=== PATIENT | female | born 1995 | race Caucasian/White ===

== ENCOUNTER 2018-01-20 13:36 | Observation (INO) ==
--- NOTE | 2018-01-20 14:48 | OB/GYN Progress Note ---
Date of Encounter: 01/20/18 Time of Encounter: 14:45 - Assessment and Plan (1) 40 weeks gestation of Current Visit: Yes Status: Acute (2) Vaginal discharge during in third trimester Current Visit: Yes Status: Acute Speculum exam shows thick chunky mucousy discharge. Fern negative. Patient offered induction of labor today, patient states she wishes to wait until . Discharged home with labor and when to return to triage precautions. Patient verbalizes understanding Subjective - Subjective Interval history: 40+6 weeks gestation presents to triage with complaints of increase in mucousy discharge. Patient said she started having increased discharge last night and has continued to the morning. Reports good movement, denies vaginal bleeding or leaking of fluid and fluid. Patient scheduled for induction of labor on Antepartum ROS: movement normal, no loss of fluid, no vaginal bleeding, no contractions Objective - Exam FHR: auscultation normal FHR comments: Baseline 145 reactive tracing Abdomen: Present: soft, gravid Cervical dilation: Fingertip/firm/thick
[2018-01-20 15:59] LABS: Amphetamine Screen,Urine Negative ng/mL (Cutoff=1000); Barbiturate Screen,Urine Negative ng/mL (Cutoff=200); Benzodiazepines Screen,Urine Negative ng/mL (Cutoff=200); Cannabinoid Screen,Urine Negative ng/mL (Cutoff = 50); Cocaine Screen,Urine Negative ng/mL (Cutoff= 300); Opiate Screen,Urine Negative ng/mL (Cutoff=300); Phencyclidine Screen,Urine Negative ng/mL (Cutoff=25)
== END 2018-01-20 14:45 | disposition home or self-care (01) ==
LOC: 1NENULAB → INTOOBSV 13:36 → OBSVTOIN 13:36
PROVIDERS: ADMIT Obstetrics & Gynecology; ATTEND Obstetrics & Gynecology

== ENCOUNTER 2018-01-21 12:56 | Inpatient (IN) ==
[2018-01-21] MEDS ORDERED: EPHEDrine 50 MG/ML VIAL IVP PRN (13:16)
[2018-01-21] MEDS ORDERED: Epidural Premix (fent/bupiv) 110 ML EP SCH (13:30)
[2018-01-21] MEDS ORDERED: Metoclopramide 10 MG/2 ML VIAL IVP PRN (14:18)
[2018-01-21] MEDS ORDERED: *HR* Nalbuphine 10 MG/ML AMPUL IVP PRN (14:18)
[2018-01-21] MEDS ORDERED: Ondansetron 4 MG/2 ML VIAL IVP PRN (14:18)
[2018-01-21] MEDS ORDERED: Naloxone 0.4 MG/ML INJ IVP PRN (14:18)
[2018-01-21] MEDS ORDERED: Famotidine 20 MG/2 ML VIAL IVP PRN (14:18)
[2018-01-21] MEDS ORDERED: miSOPROStol 25 MCG TABLET PO PRN (14:18)
--- NOTE | 2018-01-21 14:23 | OB/GYN History & Physical ---
Date of Encounter: 01/21/18 Time of Encounter: 14:22 Assessment and Plan (1) Post-dates Current visit: Yes Status: Acute Admit to labor and delivery for IOL for post-dates GBS positive; PCN prophylaxis Cytotec and perez bulb Consider AROM and/or pitocin Anticipate vaginal delivery POC per consult with Dr Bello Qualifiers: Post-term type: 40-42 weeks gestation Qualified Code(s): O48.0 - Post-term (2) 41 weeks gestation of Current visit: Yes Status: Acute History of Present Illness Chief complaint: Contractions, vaginal discharge, and bloody show HPI: Ms. Mckeon is a 22 year old at 41 weeks and 0 days that presents to labor and delivery triage with c/o increased vaginal discharge, irregular contractions , and bloody vaginal discharge yesterday. She states positive movement. She denies headache, visual disturbances, and epigastric pain. After discussing risks vs benefits of discharge vs postdate IOL, patient elects to induce today. Past Med Surg Social Fam HX - Past Medical History Medical history: no medical history Psychiatric history: no psych history - Past Surgical History Surgical History: no surgical history - Social History Smoking Status: Never smoker Alcohol use: none Drug use: none - Family History Mother Hx Family Cardiac Disorders: Yes (Low blood pressure) Obstetrical History - Pregnancies : 1 Para: 0 Term: 0 : 0 Ab's: 0 Livin Medications and Allergies Vit Calc,Iron,Folic [ Vitamins] 1 each PO DAILY 01/21/18 [ History] 3 Allergy/AdvReac Type Severity Reaction Status Date / Time Amoxicillin AdvReac Rash Verified 01/21/18 13:50 Review of System OB All systems PM: reviewed and no additional remarkable complaints except as stated Exam - Constitutional Constitutional: well developed, well nourished, no acute distress, average body habitus - HEENT HEENT: Normocephaly, Mucus Membranes Moist - Neck Neck exam: full ROM - Lungs Respiratory exam: CTAB - Cardiovascular Cardiovascular exam: RRR, +S1 - Abdomen Abdomen: Present: bowel sounds normal, gravid, non tender - Extremities Extremities exam: normal capillary refill, normal inspection, radial pulses palpable and symmetrical Deep Tendon Reflex Grade: 2+ Normal - Vagina Vagina: Present: normal moisture - Cervix Dilation: 1 Effacement: 70 Station: -2 - Uterus Uterus exam: Present: normal size, normal contour Results All other labs normal. - VTE Reasons for not Prescribing Prophylaxis: Treatment not Indicated - Low risk for VTE
[2018-01-21] MEDS ORDERED: Lidocaine -MPF 1% 2 ML VIAL ONE (14:25)
--- NOTE | 2018-01-21 14:38 | Anesthesia Evaluation PreOp ---
Date of Encounter: 01/21/18 Time of Encounter: 14:33 - Past History Planned Operation: vaginal del, G1 post dates, ind Cardiac History: Denies any Significant Hx Pulmonary History: Denies Any Significant HX SALESPERSON PARTS History: Denies Any Significant HX Other Medical History: Denies Any Significant HX Anesthesia History: No Prior Anesthetic Complications, Past Anesthesia Alcohol Use: none Drug use: none Medications and Allergies Vit Calc,Iron,Folic [ Vitamins] 1 each PO DAILY 01/21/18 [ History] 3 Allergy/AdvReac Type Severity Reaction Status Date / Time Amoxicillin AdvReac Rash Verified 01/21/18 13:50 Anesthesia Exam - HEENT Pupil (Motor): Pupils equal Mallampati: II Teeth: Normal Oral Opening: Greater than 3 - SALESPERSON PARTS LOC: Oriented SALESPERSON PARTS Motor: Normal RUE, Normal LUE, Normal RLE, Normal LLE, Normal Face SALESPERSON PARTS Sensory: Normal: RUE, LUE, RLE, LLE, Face - Cardiac Rhythm: Regular Murmur: None - Pulmonary Breath Sounds: bilateral Clear Respiratory Effort: Symmetrical Anesthesia Assess/Plan ASA Score: 2 Modified Allen Scale for Level of Consciousness: Cooperative, oriented, and tranquil Anesthetic Plan: General, Regional Monitoring Plan: Standard Monitors Recovery Plan: PACU
[2018-01-21 15:13] LABS: Basophils % 0.2 %; Eosinophils # 0.1 K/mcL (0.0-0.6); Eosinophils % 0.7 %; Hematocrit 40.8 % (35.3-44.9); Immature Granulocytes % 0.6 % (0-4); Lymphocytes # 1.6 K/mcL (0.6-4.6); Mean Corpuscular HGB Conc 34.3 g/dL (31.6-35.5); Mean Corpuscular Hemoglobin 30.8 pg (28.0-33.3); Mean Corpuscular Volume 89.9 fL (83.0-100.0); Mean Platelet Volume 12.3 fL (9.4-12.4); Monocytes # 0.6 K/mcL (0.0-1.3); Monocytes % 6.9 %; Platelet Count 175 K/mcL (140-400); Red Blood Count 4.54 M/mcL (3.82-4.97); Red Cell Distribution Width 12.8 % (11.5-14.5); Segmented Neutrophils % 72.6 %
[2018-01-21 15:31] LABS: Amphetamine Screen,Urine Negative ng/mL (Cutoff=1000); Barbiturate Screen,Urine Negative ng/mL (Cutoff=200); Benzodiazepines Screen,Urine Negative ng/mL (Cutoff=200); Cannabinoid Screen,Urine Negative ng/mL (Cutoff = 50); Cocaine Screen,Urine Negative ng/mL (Cutoff= 300); Opiate Screen,Urine Negative ng/mL (Cutoff=300); Phencyclidine Screen,Urine Negative ng/mL (Cutoff=25)
[2018-01-21] MEDS: Ringers Solution, Lactated 1,000 ML IVC SCH (16:17)
--- NOTE | 2018-01-21 18:31 | OB Labor Progress Note ---
Date of Encounter: 01/21/18 Time of Encounter: 18:29 Labor Progress Note - Subjective Subjective: Sitting up in bed; states she is comfortable - Vital Signs Vital Signs: VSS - Cervix Cervix: 1-2/80/-2 - Heart Tones Heart Tones: 145 - [place]: irregular contractions - Interventions Interventions: Intracervical perez placed without difficulty with 40 ml of sterile water. Fetus and patient tolerated well. - Plan Plan: Continue routine labor management GBS positive - had allergic reaction to vancomycin. No other appropriate ABX available due to sensitivity. Discussed risks and benefits to both mother and fetus with patient Patient may have nubain and/or epidural. Consider second dose of cytotec Consider AROM vs/and pitocin Anticipate vaginal delivery POC per consult with Dr Bello
[2018-01-21] MEDS ORDERED: cefTRIAXone 2,000 MG in Water for inj. (sterile) 20 ML 20 ML IVP STA (18:44)
[2018-01-21] MEDS ORDERED: Oxytocin 20 units/ LR 1000 mL 20 UNIT/1,000 ML BAG IVC SCH (23:45)
[2018-01-22] MEDS: Ringers Solution, Lactated 1,000 ML IVC SCH ×2 (00:12→14:20)
[2018-01-22] MEDS ORDERED: Lidocaine -MPF 2% 5 ML VIAL ONE ×2 (05:09→05:55)
--- NOTE | 2018-01-22 05:41 | Anesthesia Procedures ---
Date of Encounter: 01/22/18 Time of Encounter: 05:14 Procedures: Anesthesia - Epidural/Spinal Patient ID/Chart reviewed: Yes Patient examined: Yes OB Eval: Gestational age: term OB Eval: : 1 OB Eval: Contractions: Non-stressed pattern Consent Obtained: Yes Supplemental Oxygen: None/Room Air Site Prep: Aseptic Technique, Sterile prep and drape, 0.5% Chlorhexidine/Alcohol Patient position: upright Local Anesthetic: Lidocaine 1% Amount of Local Anesthetic used: 2 Touhy Needle Gauge: 18 Touhy Needle Depth (cm): 6 Catheter Depth at Skin (cm): 10 Test Dose (1.5% Lido + Epi): Volume given (mls): 3 Test Dose Result: Negative Loading Dose: Other: 10ml from solution Loading Dose Administered: Thru Catheter Infusion Med: 0.125% Bupivacaine w/ 2 mcg/ml Fentanyl Infusion Rate (mls/hr): [address]: Tegaderm, Tape Interspace Used: L3-L4 Loss of Resistance (SANJAY): Yes (saline) Blood: No CSF: No Paresthesia: No Procedure: vss though out procedure, FHR per staff stable.
[2018-01-22] MEDS ORDERED: *HR* Ropivacaine/PF 0.5% 20 ML VIAL ONE (05:43)
[2018-01-22] MEDS ORDERED: Lidocaine/EPI 1:200k 2% PF 20 ML VIAL ONE (05:43)
[2018-01-22] MEDS ORDERED: cefTRIAXone 2,000 MG in Water for inj. (sterile) 20 ML 20 ML IVPB SCH (06:00)
--- NOTE | 2018-01-22 07:08 | Anesthesia Progress Note ---
Date of Encounter: 01/22/18 Time of Encounter: 06:01 Anesthesia Note - Note Note: post epidural c/o unilateral pain on left. post bolus with patient left side down with 4ml lido with epi and 2ml of 0.5% rop. 20min later, still c/o with just 3-4 cm in decision to replace rather than withdraw 1cm. AT 0609....same prep went up 1 interspace, and SANJAY as previous noted 27g pencan to clear CSF no INJ. then cath easily 4 cm in. taped once patient supine, HEME was noted in CATH , and + test, withdrawal CATH 1 cm with still + HEME, once line was cleared. spoke with patient and informed not safe with this CATH and was okay to proceed to 3rd epidural placement. decision to do Lateral approach d/t HEME last time. AT 0639 prep and drape as before, strict aseptic though out all TECH, then up another interspace, lido skin, SNAJAY with saline and cath easy 4 cm IN. test dose neg. no loading dose given. dressing applied and placed on GTT. RN at BS entire time. FHR stable though out per staff.
--- NOTE | 2018-01-22 07:11 | OB Labor Progress Note ---
Date of Encounter: 01/22/18 Time of Encounter: 00:01 Labor Progress Note - Subjective Subjective: Patient breathing through contractions - Vital Signs Vital Signs: VSS - Cervix Cervix: 3/80/0 - Heart Tones Heart Tones: Reactive - [place]: contractions every 2-4 minutes - Plan Plan: Continue routine labor management Patient may have epidural/nubain upon request PCN positive; per discussion with Dr Bello, will use rocephin for GBS prophylaxis due to allergies, and sensitivity Pitocin Anticipate vaginal delivery POC per consult with Dr Bello
--- NOTE | 2018-01-22 12:10 | OB Labor Progress Note ---
Date of Encounter: 01/22/18 Time of Encounter: 12:08 Labor Progress Note - Subjective Subjective: Comfortable with epidural - Cervix Cervix: 6/100/-1 - Heart Tones Heart Tones: 130/moderate/+accels/-decels - [place]: q2 - Plan Plan: Continue pitocin per policy Frequent repositioning Use peanut ball Anticipate
--- NOTE | 2018-01-22 17:22 | OB/GYN Procedure Note ---
Delivery - Delivery Date: 01/22/18 Provider: Patricia Wright Intrapartum events: none Delivery induction: AROM, oxytocin, perez, misoprostol Delivery monitor: external FHT, external uterine Anesthesia: epidural Quantitated Blood Loss: 450 - Infant (s) A Infant Delivery Date: 01/22/18 Delivery Time: 17:19 Presentation: vertex Position: OA Route of delivery: Gender: Female Viability: Viable at 1 minute: 8 at 5 mins: 9 Shoulder Dystocia: not encountered Specimens collected: cord blood Placenta: spontaneous Cord: 3 umbilical vessels - Repair Episiotomy: none Laceration Description: Perineal - 2nd Degree - Complications Delivery complications: none Delivery comments: Induction of labor for postdates . Progressed to complete. Maternal bearing down efforts to of liveborn female. Next delivered OA, shoulders and body easily followed. No nuchal cord or shoulder dystocia encountered. Vigorous infant placed on maternal abdomen Apgars 8/9. Placenta delivered spontaneously ([place]) complete and intact upon inspection. Pitocin started per policy and fundus massaged until firm. Second degree perineal laceration repaired with 3-0 Monocryl, Dr. Rojo in room to assist with repair of laceration. Straight catheter large amount of clear yellow urine. EBL 450 - Disposition Mom disposition: stable in LDR disposition: stable in LDR
[2018-01-22] MEDS ORDERED: Oxytocin 20 units/ LR 1000 mL 20 UNIT/1,000 ML BAG IVC SCH (20:29)
[2018-01-22] MEDS ORDERED: Lanolin 28 GM TUBE TP PRN (20:29)
[2018-01-22] MEDS ORDERED: Measles/Mumps/Rubella Vacc 0.5 ML VIAL SQ PRN (20:29)
[2018-01-22] MEDS ORDERED: Acetaminophen 325 MG TABLET PO PRN (20:29)
[2018-01-22] MEDS ORDERED: Benzocaine/Menthol 56 GM AEROSOL SPRAY TP PRN (20:29)
[2018-01-22] MEDS: Ibuprofen 600 MG TABLET PO PRN (21:57)
[2018-01-22] MEDS ORDERED: Lanolin 7 G OINT...G. TP PRN (22:00)
[2018-01-23 06:29] LABS: Basophils % 0.3 %; Eosinophils % 0.3 %; Hematocrit 31.8 % (35.3-44.9); Immature Granulocytes % 0.6 % (0-4); Lymphocytes # 2.4 K/mcL (0.6-4.6); Lymphocytes % 17.1 %; Mean Corpuscular HGB Conc 33.6 g/dL (31.6-35.5); Mean Corpuscular Hemoglobin 30.2 pg (28.0-33.3); Mean Corpuscular Volume 89.8 fL (83.0-100.0); Mean Platelet Volume 11.6 fL (9.4-12.4); Monocytes # 0.9 K/mcL (0.0-1.3); Monocytes % 6.4 %; Neutrophils # 10.5 K/mcL (1.6-8.9); Platelet Count 148 K/mcL (140-400); Red Blood Count 3.54 M/mcL (3.82-4.97); Red Cell Distribution Width 12.9 % (11.5-14.5); Segmented Neutrophils % 75.3 %
[2018-01-23 06:33] LABS: Hemoglobin 10.7 g/dL (11.5-15.4)
[2018-01-23] MEDS: Prenatal Vit/FA 1 EACH TABLET PO SCH (09:29)
[2018-01-23] MEDS: Ibuprofen 600 MG TABLET PO PRN ×2 (09:29→21:42)
[2018-01-24] MEDS: Ibuprofen 600 MG TABLET PO PRN (05:16)
[2018-01-24 07:51] VITALS: BP 99/58
[2018-01-24] MEDS: Prenatal Vit/FA 1 EACH TABLET PO SCH (08:03)
--- NOTE | 2018-01-24 10:09 | Discharge Summary ---
Date of Encounter: 01/24/18 Time of Encounter: 10:04 - Discharge Diagnosis (1) Normal vaginal delivery Priority: Primary Status: Acute Comments: Pt seen and examined at bedside Tolerating regular diet Voiding appropriately; Has had bowel movement Mild pain controlled with Motrin PRN Lochia Light Ambulating with no difficulty Plans to breastfeed - occasional difficulty with latch Discharge Home today (2) () Priority: Secondary Status: Acute Comments: Pt plans to breastfeed Community resources provided - Discharge Medications Prescriptions: Ibuprofen [Motrin] 600 mg PO Q6HR PRN 14 Days #30 tablet PRN Reason: Cramping Breast Pump [BREAST PUMP] 1 each .ROUTE AD #1 each Docusate [Colace] 100 mg PO BID 14 Days #30 capsule Ferrous Sulfate 325 mg PO DAILY 30 Days #30 tablet Home Medications: Vit Calc,Iron,Folic [ Vitamins] 1 each PO DAILY 01/21/18 [ History] Acetaminophen [Tylenol] 650 mg PO Q6HR PRN tablet 01/24/18 [Rx] Breast Pump [BREAST PUMP] 1 each .ROUTE AD #1 each 01/24/18 [Rx] Docusate [Colace] 100 mg PO BID 14 Days #30 capsule 01/24/18 [Rx] Ferrous Sulfate 325 mg PO DAILY 30 Days #30 tablet 01/24/18 [Rx] Ibuprofen [Motrin] 600 mg PO Q6HR PRN 14 Days #30 tablet 01/24/18 [Rx] Allergies/Adverse Reactions: 3 Allergy/AdvReac Type Severity Reaction Status Date / Time vancomycin Allergy Rash Verified 01/21/18 17:19 Amoxicillin AdvReac Rash Verified 01/21/18 13:50 Data Procedures and tests throughout hospitalization: Laboratory Tests 01/21/18 01/21/18 01/23/18 14:48 14:48 06:03 WBC 8.3 14.0 H D RBC 4.54 3.54 L Hgb 14.0 10.7 L D Hct 40.8 31.8 L MCV 89.9 89.8 MCH 30.8 30.2 MCHC 34.3 33.6 RDW 12.8 12.9 Plt Count 175 148 MPV 12.3 11.6 Immature Gran % 0.6 0.6 Seg Neutrophils % 72.6 75.3 Lymphocytes % 19.0 17.1 Monocytes % 6.9 6.4 Eosinophils % 0.7 0.3 Basophils % 0.2 0.3 Neutrophils # 6.0 10.5 H Lymphocytes # 1.6 2.4 Monocytes # 0.6 0.9 Eosinophils # 0.1 0.0 Basophils # 0.0 0.0 Urine Opiates Screen Negative Ur Barbiturates Screen Negative Ur Phencyclidine Scrn Negative Ur Amphetamines Screen Negative U Benzodiazepines Scrn Negative Urine Cocaine Screen Negative U Marijuana (THC) Screen Negative Ur Drug Screen Interp See Below Date of admission: 01/21/18 14:18 Primary care physician: PCP NONE Consults: 01/22/18 20:29 Consult to Frame Tender [CONS] Routine Comment: Vaginal delivery, consult needed Discharging clinician: Claudia Cardoza Anticipated date of discharge: 01/24/18 - Patient Status Disposition: Home, Self-Care Condition: Good Functional capacity at discharge: independent ambulation Overall status at discharge: patient is progressing back to baseline - Discharge Instructions Follow Up With: NONE,PCP [Primary Care Provider] - Patricia Wright CNM [Advanced Practice Nurse] - - Diet and Activity Activity: resume usual activities as tolerated Diet: regular diet Hospital Course Reason for admission: active labor Delivery: Episiotomy: none Laceration: 2nd degree Other procedures: none complications: none Discharge diagnosis: IUP at term delivered [place] baby: female Hospital course: Pt presented for labor evaluation with increased vaginal discharge, irregular contractions Plan for induction of labor due post-term dates Pt found to be GBS positive - allergic to amoxicillin; resistant to clindamycin ; allergic rxn to vancomycin; given Ceftriaxone Normal standard vaginal delivery with repaired 2nd degree laceration Infant kept for 48 hrs due to GBS positive Plan to discharge home today Time Attestation: Total time spent providing and/or coordinating discharge services: Time Spent: Less than 30 minutes Exam - Constitutional Vitals: Temp Pulse Resp BP Pulse Ox 98.1 F 85 12 99/58 98 01/24/18 07:49 01/24/18 07:49 01/24/18 07:49 01/24/18 07:49 01/24/18 07:49 General appearance IM: cooperative, A&O X 3, pleasant, no acute distress, answers questions appropriately - Respiratory Respiratory exam: Present: CTAB - Cardiovascular Cardiovascular exam IM: Present: RRR, +S1, +S2 - GI/Abdominal GI/Abdominal exam IM: normal bowel sounds, soft, no peritoneal signs - Rectal Rectal exam: deferred - Uterine Tone: Firm Uterus Position: At Umbilicus, Midline - Extremities Exam Extremities exam IM: Present: normal capillary refill, normal inspection, radial pulses palpable and symmetrical - Neurological Exam Neurological exam: alert, CN II-XII intact, oriented X3 - Psychiatric Additional comments: Signs and Symptoms of depression discussed Pt verbalizes understanding of when to seek help - Attending Attestation I have seen and examined this patient. I agree with the above information.
== END 2018-01-24 16:50 | disposition home or self-care (01) | DRG 775 ==
LOC: 1NENULAB → 1NENUOBS 01-22 20:30
PROVIDERS: ADMIT Advanced Practice Midwife; ATTEND Advanced Practice Midwife